=== PATIENT | male | born 2000 | race Caucasian/White ===

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

== ENCOUNTER 2022-12-26 01:19 | Emergency (ER) | payer MEDICAID, OTHER ==
[~2022-12-26 01:19] MED LIST changes: +DIPH-435 PO; -DIPH25CA32 PO; +MELA1TAB31 PO; -MELA1TAB33 PO
[2022-12-26 01:20] VITALS: BP 138/86
== END 2022-12-26 01:20 | disposition left against medical advice (07) ==
LOC: M ED 01:19
DX: R05.9 Cough, unspecified (principal); Z53.21 Procedure and treatment not carried out due to patient leaving prior to being seen by health care provider

== ENCOUNTER → 2023-06-08 | Outpatient (CLI) | payer OTHER | LOC: M RAD 14:35 | PROVIDERS: ATTEND Physician Assistant Medical | DX: M25.561 Pain in right knee (principal) ==

== ENCOUNTER → 2023-07-05 | Outpatient (CLI) | payer OTHER ==
[2023-07-05 13:19] LABS: HEMATOCRIT 45.2 % (42.0-52.0); HEMOGLOBIN 14.7 g/dl (13.5-17.5); MEAN CORPUSCULAR HEMOGLOBIN 29.2 pg (27.0-33.0); MEAN CORPUSCULAR HGB CONC 32.5 g/dl (32.0-36.5); MEAN CORPUSCULAR VOLUME 89.7 fl (80.0-96.0); PLATELET COUNT, AUTOMATED 301 10^3/uL (150-450); RED BLOOD COUNT 5.04 10^6/uL (4.30-6.10)
[2023-07-05 13:49] LABS: ALBUMIN 4.3 G/DL (3.2-5.2); ALKALINE PHOSPHATASE 75 U/L (46-116); ALT/SGPT 37 U/L (7.0-40); AST/SGOT 17 U/L (<34); BILIRUBIN,TOTAL 0.2 MG/DL (0.3-1.2); BLOOD UREA NITROGEN 12 MG/DL (9-23); CALCIUM LEVEL 9.8 MG/DL (8.5-10.1); CARBON DIOXIDE LEVEL 30 MMOL/L (20-31); CHLORIDE LEVEL 108 MMOL/L (98-107); CREATININE FOR GFR 0.86 MG/DL (0.70-1.30); GLOMERULAR FILTRATION RATE > 60.0 (>60); GLUCOSE, FASTING 106 MG/DL (60-100); POTASSIUM SERUM 4.4 MMOL/L (3.5-5.1); SODIUM LEVEL 145 MMOL/L (136-145); TOTAL PROTEIN 7.9 G/DL (5.7-8.2)
== END ==
LOC: M LAB 12:44
PROVIDERS: ATTEND Registered Nurse
DX: R19.7 Diarrhea, unspecified (principal)

== ENCOUNTER → 2023-08-21 | Outpatient (CLI) | payer OTHER ==
[2023-08-21 10:15] LABS: BASO # 0.1 10^3/uL (0.0-0.2); BASO % 0.8 % (0.0-1.0); EOS # 0.3 10^3/uL (0.0-0.5); EOS % 2.7 % (0.0-3.0); HEMATOCRIT 43.5 % (42.0-52.0); LYMPH # 4.3 10^3/uL (1.5-5.0); LYMPH % 40.9 % (24.0-44.0); MEAN CORPUSCULAR HGB CONC 32.2 g/dl (32.0-36.5); MEAN CORPUSCULAR VOLUME 90.1 fl (80.0-96.0); MONO # 0.9 10^3/uL (0.0-0.8); MONO % 8.9 % (2.0-8.0); NEUTROPHILS # 4.9 10^3/uL (1.5-8.5); NEUTROPHILS % 46.3 % (36.0-66.0); PLATELET COUNT, AUTOMATED 293 10^3/uL (150-450); RED BLOOD COUNT 4.83 10^6/uL (4.30-6.10); WHITE BLOOD COUNT 10.6 10^3/uL (4.0-10.0)
[2023-08-21 10:22] LABS: C REACTIVE PROTEIN QUANTITATIV < 0.40 MG/DL (<1.0)
[2023-08-21 10:24] LABS: RHEUMATOID FACTOR QUANT < 3.5 IU/ML (<14)
[2023-08-21 10:27] LABS: ERYTHROCYTE SEDIMENTATION RATE 29 mm/hr (0-15)
[2023-08-22 12:10] LABS: ANTINUCLEAR ANTIBODIES DIRECT Negative (Negative)
== END ==
LOC: M PLALAB 08:35
PROVIDERS: ATTEND Orthopaedic Surgery
DX: M25.561 Pain in right knee (principal)

== ENCOUNTER 2024-02-06 21:44 | Emergency (ER) | payer OTHER ==
[~2024-02-06] VITALS: Ht 172.7 cm; Wt 100.7 kg
[2024-02-06 22:38] LABS: BASO # 0.1 10^3/uL (0.0-0.2); BASO % 0.5 % (0.0-1.0); EOS # 0.2 10^3/uL (0.0-0.5); EOS % 1.2 % (0.0-3.0); HEMATOCRIT 44.6 % (42.0-52.0); HEMOGLOBIN 14.9 g/dl (13.5-17.5); LYMPH # 2.7 10^3/uL (1.5-5.0); LYMPH % 17.7 % (24.0-44.0); MEAN CORPUSCULAR HEMOGLOBIN 29.9 pg (27.0-33.0); MEAN CORPUSCULAR HGB CONC 33.4 g/dl (32.0-36.5); MEAN CORPUSCULAR VOLUME 89.6 fl (80.0-96.0); MONO # 1.2 10^3/uL (0.0-0.8); MONO % 7.7 % (2.0-8.0); NEUTROPHILS % 72.5 % (36.0-66.0); PLATELET COUNT, AUTOMATED 305 10^3/uL (150-450); RED BLOOD COUNT 4.98 10^6/uL (4.30-6.10); WHITE BLOOD COUNT 15.1 10^3/uL (4.0-10.0)
[2024-02-06 23:07] LABS: AMPHETAMINES LEVEL URINE NEGATIVE (NEGATIVE); BARBITURATES URINE NEGATIVE (NEGATIVE); BENZODIAZEPINES URINE NEGATIVE (NEGATIVE); CANNABINOIDS URINE NEGATIVE (NEGATIVE); COCAINE METABOLITE URINE NEGATIVE (NEGATIVE); METHADONE URINE NEGATIVE (NEGATIVE); OPIATES URINE NEGATIVE (NEGATIVE); PHENCYCLIDINE URINE NEGATIVE (NEGATIVE)
[2024-02-06 23:11] LABS: BLOOD UREA NITROGEN 15 MG/DL (9-23); CALCIUM LEVEL 9.5 MG/DL (8.5-10.1); CARBON DIOXIDE LEVEL 27 MMOL/L (20-31); CHLORIDE LEVEL 103 MMOL/L (98-107); CK-MB VALUE MASS < 1.0 NG/ML (<3.6); CREATININE FOR GFR 0.96 MG/DL (0.70-1.30); GLOMERULAR FILTRATION RATE > 60.0 (>60); GLUCOSE, FASTING 93 MG/DL (60-100); POTASSIUM SERUM 4.2 MMOL/L (3.5-5.1); SODIUM LEVEL 138 MMOL/L (136-145)
[2024-02-06 23:35] LABS: CPK CREATINE PHOSPHOKINASE 93 U/L (46-171); MB/CK RELATIVE INDEX 1.07 (< OR =4)
[2024-02-07 01:01] VITALS: TEMP 98.4
[2024-02-07 04:44] LABS: CK-MB VALUE MASS < 1.0 NG/ML (<3.6); CPK CREATINE PHOSPHOKINASE 85 U/L (46-171); MB/CK RELATIVE INDEX 1.17 (< OR =4)
[2024-02-07 05:05] VITALS: BP 136/65; O2SAT 99
[2024-02-07] MEDS ORDERED: HYDR-3363 PO (05:17)
[2024-02-07] MEDS ORDERED: SERT25TA21 (05:36)
[2024-02-07] MEDS ORDERED: VITAD400CA FT (05:36)
[2024-02-07] MEDS ORDERED: VRAY3CAP (05:36)
== END 2024-02-07 06:33 | disposition left against medical advice (07) ==
LOC: M ED 21:44
DX: Z53.21 Procedure and treatment not carried out due to patient leaving prior to being seen by health care provider (principal)

== ENCOUNTER 2024-07-12 09:16 | Day surgery (SDC) | payer OTHER ==
[~2024-07-12] VITALS: Ht 170.2 cm; Wt 102.1 kg
[~2024-07-12 09:16] MED LIST changes: +HYDR-3363 PO; +SERT25TA21 PO; +VITAD400CA FT; +VRAY3CAP
[2024-07-12] MEDS ORDERED: NS (Normal Saline) 0.9% 1,000 ML IV SCH ×2 (09:55→13:30)
[2024-07-12] MEDS ORDERED: MIDAZOLAM INJ 2MG/2ML VIAL As Ordered ONE (10:50)
[2024-07-12] MEDS ORDERED: propofoL 200 MG/20 ML VIAL As Ordered ONE (10:50)
[2024-07-12] MEDS ORDERED: fentaNYL 100 MCG/2 ML INJECTION As Ordered ONE (10:50)
[2024-07-12] MEDS ORDERED: LIDOCAINE 2% 100MG/5ML SDV (FOR ANES.) As Ordered ONE (10:50)
[2024-07-12] MEDS ORDERED: SUGAMMADEX SODIUM 500 MG/5 ML VIAL (BRIDION) As Ordered ONE (10:50)
[2024-07-12] MEDS ORDERED: ROCURONIUM BROMIDE 50MG/5ML VIAL As Ordered ONE (10:50)
[2024-07-12] MEDS ORDERED: ONDANSETRON 4MG 2ML VIAL As Ordered ONE (10:51)
[2024-07-12] MEDS ORDERED: ACETAMINOPHEN 1000MG/100ML IV BAG As Ordered ONE (11:13)
[2024-07-12] MEDS: OXYMETAZOLINE 0.05% NASAL SPRAY (AFRIN) As Ordered ONE (12:44)
[2024-07-12] MEDS: METHYLENE BLUE 0.5% (5MG/ML) 10 ML AMP (PROVAYBLUE) As Ordered ONE (12:45)
[2024-07-12] MEDS: LIDOCAINE W/EPINEPHRINE 1% 20ML VIAL As Ordered ONE (13:25)
[2024-07-12] MEDS ORDERED: fentaNYL 100 MCG/2 ML INJECTION IV PRN (13:30)
[2024-07-12] MEDS: ONDANSETRON 4MG 2ML VIAL IV PRN (14:03)
[2024-07-12] MEDS: oxyCODONE 5MG TAB PO PRN (14:04)
[2024-07-12] MEDS: HYDROMORPHONE HCL 0.5 MG/ 0.5 ML SYRINGE IV PRN (14:04)
[2024-07-12 14:50] VITALS: BP 166/92; TEMP 97.4; O2SAT 100
== END 2024-07-12 15:16 | disposition home or self-care (01) ==
LOC: M SDC 09:16
PROVIDERS: ATTEND Otolaryngology
DX: J35.1 Hypertrophy of tonsils (principal); J34.3 Hypertrophy of nasal turbinates; J34.89 Other specified disorders of nose and nasal sinuses; G47.30 Sleep apnea, unspecified; R06.02 Shortness of breath; Z79.899 Other long term (current) drug therapy; F17.290 Nicotine dependence, other tobacco product, uncomplicated; F17.210 Nicotine dependence, cigarettes, uncomplicated
CPT/HCPCS: 30140; 42826; J0131; J1100; J1171; J2250; J2405; J3010; Q9968

== ENCOUNTER 2025-01-31 12:48 | Emergency (ER) | payer OTHER, MEDICAID ==
[2025-01-31 15:37] VITALS: BP 122/79; TEMP 97.7; O2SAT 98
== END 2025-01-31 15:55 | disposition home or self-care (01) ==
LOC: M ED 12:48
DX: S50.312A Abrasion of left elbow, initial encounter (principal); S70.12XA Contusion of left thigh, initial encounter; Y92.9 Unspecified place or not applicable; Y93.9 Activity, unspecified; Y99.0 Civilian activity done for income or pay; W20.8XXA Other cause of strike by thrown, projected or falling object, initial encounter; F17.210 Nicotine dependence, cigarettes, uncomplicated; F12.10 Cannabis abuse, uncomplicated; Z79.899 Other long term (current) drug therapy

== ENCOUNTER 2025-03-18 18:53 | Inpatient (IN) | payer OTHER, MEDICAID ==
[~2025-03-18] VITALS: Ht 177.8 cm; Wt 91.0 kg
[2025-03-18] MEDS: ACETAMINOPHEN 325 MG TAB PO ONE (19:40)
[2025-03-18 19:45] LABS: BASO # 0.1 10^3/uL (0.0-0.2); BASO % 0.4 % (0.0-1.0); EOS # 0.1 10^3/uL (0.0-0.5); EOS % 0.2 % (0.0-3.0); LYMPH # 1.6 10^3/uL (1.5-5.0); LYMPH % 6.6 % (24.0-44.0); MONO # 1.9 10^3/uL (0.0-0.8); MONO % 7.6 % (2.0-8.0); NEUTROPHILS # 20.8 10^3/uL (1.5-8.5); NEUTROPHILS % 84.6 % (36.0-66.0); PLATELET COUNT, AUTOMATED 343 10^3/uL (150-450)
[2025-03-18 19:57] LABS: ERYTHROCYTE SEDIMENTATION RATE > 130 mm/hr (0-15)
[2025-03-18 20:12] LABS: ALT/SGPT 16 U/L (7.0-40); AST/SGOT 13 U/L (<34); CALCIUM LEVEL 9.0 MG/DL (8.5-10.1); CARBON DIOXIDE LEVEL 25 MMOL/L (20-31); CHLORIDE LEVEL 103 MMOL/L (98-107); CREATININE FOR GFR 1.09 MG/DL (0.70-1.30); GLOMERULAR FILTRATION RATE > 90.0 (>60); POTASSIUM SERUM 3.6 MMOL/L (3.5-5.1); SODIUM LEVEL 139 MMOL/L (136-145)
[2025-03-18] MEDS: VANCOMYCIN HCL 1,750 MG, VIAL MATE ADAPTER 1 EACH in NS 500 ML IV ONE (20:23)
[2025-03-18] MEDS ORDERED: ISOVUE-370 76% 100 ML VIAL As Ordered ONE (20:31)
[2025-03-18 20:39] LABS: C REACTIVE PROTEIN QUANTITATIV 30.05 MG/DL (<1.0)
[2025-03-18] MEDS: LIDOCAINE W/EPINEPHrine 1% 20 ML VIAL SC ONE (22:21)
[2025-03-19] MEDS ORDERED: VITA200016 PO (00:15)
[2025-03-19] MEDS ORDERED: MAALOX 30 ML SUSP *UDC PO PRN (00:20)
[2025-03-19] MEDS ORDERED: HOME MED LIST COMPLETE! XX SCH (00:20)
[2025-03-19] MEDS: LR 1,000 ML IV SCH (00:49)
[2025-03-19] MEDS: PIPERACILLIN/TAZOBACTAM SOD 4.5 GM in DEXTROSE 5% (D5W) ADV/MINI-BAG 50 ML IV SCH (00:49)
[2025-03-19 01:26] LABS: APPEARANCE, URINE CLEAR (CLEAR); BACTERIA, URINE AUTO NEGATIVE (NEGATIVE); BILIRUBIN, URINE AUTO NEGATIVE (NEGATIVE); BLOOD, URINE BLOOD NEGATIVE (NEGATIVE); GLUCOSE, URINE (UA) AUTO NEGATIVE (NEGATIVE); KETONE, URINE AUTO NEGATIVE (NEGATIVE); LEUKOCYTE ESTERASE, URINE AUTO NEGATIVE (NEGATIVE); MUCUS, URINE SMALL (NEGATIVE); NITRITE, URINE AUTO NEGATIVE (NEGATIVE); PROTEIN, URINE AUTO NEGATIVE (NEGATIVE); RBC, URINE AUTO 0 /HPF (0-3); SPECIFIC GRAVITY URINE AUTO 1.025 (1.002-1.035); SQUAMOUS EPITHELIAL CELL UR AU 0 /HPF (0-6); UROBILINOGEN, URINE AUTO 0.2 mg/dL (0.0-2.0); WBC, URINE AUTO 3 /HPF (0-3)
[2025-03-19] MEDS ORDERED: NICOTINE 14 MG/24 HR TRANSDERMAL TD PRN (01:45)
[2025-03-19] MEDS ORDERED: NICOTINE POLACRILEX 2 MG GUM PO PRN (01:45)
[2025-03-19 02:17] VITALS: BP 133/77; TEMP 98.6; O2SAT 98
[2025-03-19] MEDS: VANCOMYCIN HCL 1,000 MG, VIAL MATE ADAPTER 1 EACH in NS 250 ML IV SCH (03:22)
[2025-03-19] MEDS: MOM 30 ML SUSPENSION UDC PO PRN (03:22)
[2025-03-19 03:34] VITALS: BP 115/67; TEMP 97.9; O2SAT 98
[2025-03-19 06:21] LABS: PLATELET COUNT, AUTOMATED 285 10^3/uL (150-450)
[2025-03-19 06:45] LABS: CALCIUM LEVEL 8.3 MG/DL (8.5-10.1); CARBON DIOXIDE LEVEL 28 MMOL/L (20-31); CHLORIDE LEVEL 105 MMOL/L (98-107); CREATININE FOR GFR 0.95 MG/DL (0.70-1.30); GLOMERULAR FILTRATION RATE > 90.0 (>60); IRON (FE) 18.0 UG/DL (65-175); PERCENT SATURATION 9.8 % (19.7-50.0); POTASSIUM SERUM 3.2 MMOL/L (3.5-5.1); SODIUM LEVEL 143 MMOL/L (136-145)
[2025-03-19 06:48] LABS: VITAMIN B12 LEVEL 204.0 PG/ML (211-911)
[2025-03-19 06:57] LABS: C REACTIVE PROTEIN QUANTITATIV 24.56 MG/DL (<1.0)
[2025-03-19 08:00] VITALS: BP 123/68; TEMP 97.7; O2SAT 96
[2025-03-19] MEDS: CARIPRAZINE 3MG CAPSULE PO SCH (09:41)
[2025-03-19] MEDS: ACETAMINOPHEN 325 MG TAB PO PRN (09:41)
[2025-03-19] MEDS: HEPARIN SOD 5000 UNITS/ML 1 ML VIAL/SYRINGE SC SCH (09:43)
[2025-03-19] MEDS: CYANOCOBALAMIN 1,000 MCG/ML 1 ML VIAL IM SCH (11:07)
[2025-03-19 12:00] VITALS: BP 124/68; TEMP 97.9; O2SAT 97
[2025-03-19] MEDS: AZITHROMYCIN 250 MG TABLET PO SCH (13:14)
[2025-03-19] MEDS ORDERED: AZIT500T5 PO (14:09)
[2025-03-19] MEDS ORDERED: CEFD1CAP9 PO (14:09)
[2025-03-19] MEDS ORDERED: CYAN-1 PO (16:36)
== END 2025-03-19 14:11 | disposition left against medical advice (07) | DRG 872 ==
LOC: M ED 18:53 → M ED INP 03-19 00:20 → M MSPAV 03-19 01:43
PROVIDERS: ADMIT Student in an Organized Health Care Education/Training Program; ATTEND Internal Medicine Nephrology
PROC: B246ZZZ Ultrasonography of Right and Left Heart (ICD-10-PCS; principal; 2025-03-19)
DX: A41.9 Sepsis, unspecified organism (principal); L03.116 Cellulitis of left lower limb; L02.412 Cutaneous abscess of left axilla; A04.4 Other intestinal Escherichia coli infections; D64.9 Anemia, unspecified; F20.9 Schizophrenia, unspecified; F17.210 Nicotine dependence, cigarettes, uncomplicated; F42.4 Excoriation (skin-picking) disorder; E53.8 Deficiency of other specified B group vitamins; E61.1 Iron deficiency; Z79.899 Other long term (current) drug therapy

== ENCOUNTER → 2025-05-09 | Outpatient (CLI) | payer OTHER, MEDICAID ==
[~2025-05-09] MED LIST changes: +AZIT500T5 PO; +CEFD1CAP9 PO; +CYAN-1 PO; +VITA200016 PO
[2025-06-08 11:27] LABS: ESTIMATED AVERAGE GLUCOSE 114.0 MG/DL (60-110)
[2025-06-08 11:30] LABS: ALT/SGPT 175 U/L (7.0-40); AST/SGOT 21 U/L (<34); CALCIUM LEVEL 9.6 MG/DL (8.5-10.1); CARBON DIOXIDE LEVEL 30 MMOL/L (20-31); CHLORIDE LEVEL 103 MMOL/L (98-107); CHOLESTEROL LEVEL 139 MG/DL (<200); CHOLESTEROL RISK RATIO 4.42 (<5); CREATININE FOR GFR 0.93 MG/DL (0.70-1.30); GLOMERULAR FILTRATION RATE > 90.0 (>60); LDL CHOLESTEROL 59.2 MG/DL (<100); NON-HDL-C 107.6 MG/DL; POTASSIUM SERUM 4.5 MMOL/L (3.5-5.1); SODIUM LEVEL 142 MMOL/L (136-145); TRIGLYCERIDES LEVEL 242 MG/DL (<150)
== END ==
LOC: M LAB 09:56
DX: F31.32 Bipolar disorder, current episode depressed, moderate (principal)